=== PATIENT | female | born 1995 | race Caucasian/White ===

== ENCOUNTER 2018-04-15 10:36 | Day surgery (SDC) | payer OTHER ==
[~2018-04-15] VITALS: Ht 165.1 cm; Wt 105.6 kg
[2018-04-15] MEDS ORDERED: MIDAZOLAM 1 MG/ML, 2ML ONE (10:42)
[2018-04-15] MEDS ORDERED: FENTANYL PF 250 MCG/5ML ONE (10:42)
[2018-04-15] MEDS ORDERED: MISOPROSTOL 200 MCG TABLET ONE (10:44)
[2018-04-15] MEDS ORDERED: OXYTOCIN 10 UNITS/ML, 1ML ONE (10:44)
[2018-04-15] MEDS ORDERED: SILVER NITRATE STICK TP ONE (10:44)
[2018-04-15] MEDS ORDERED: METHYLERGONOVINE 0.2 MG/ML IM ONE (10:45)
[2018-04-15] MEDS ORDERED: PROPOFOL 10 MG/ML, 20ML ONE (10:46)
[2018-04-15] MEDS ORDERED: ONDANSETRON 2MG/ML, 2ML ONE (10:48)
[2018-04-15] MEDS ORDERED: CEFAZOLIN 1,000 MG ONE ×2 (10:48)
[2018-04-15] MEDS ORDERED: SODIUM CHLORIDE 0.9% PF 10ML ONE (10:48)
[2018-04-15] MEDS ORDERED: DEXAMETHASONE 4 MG/ML, 1ML ONE ×2 (10:48)
[2018-04-15] MEDS ORDERED: KETOROLAC 30 MG/1 ML ONE (10:48)
[2018-04-15] MEDS ORDERED: LACTATED RINGERS 1,000 ML IV SCH (11:08)
[2018-04-15 11:09] VITALS: BP 137/88
[2018-04-15] MEDS ORDERED: NONE PER PT (11:09)
[2018-04-15 11:21] LABS: BASOPHILS # (AUTO) 0.08 x10^3/uL (0-0.1); BASOPHILS % (AUTO) 1 % (0-1); EOSINOPHILS # (AUTO) 0.02 x10^3/uL (0-0.4); EOSINOPHILS % (AUTO) 0 % (1-7); LYMPHOCYTES # (AUTO) 1.92 x10^3/uL (1-3.4); LYMPHOCYTES % (AUTO) 24 % (22-44); MD NO; MEAN CORPUSCULAR HEMOGLOBIN 28.8 pg (27.0-34.8); MEAN CORPUSCULAR HGB CONC 33.6 g/dL (32.4-35.8); MEAN CORPUSCULAR VOLUME 85.8 fL (80-100); MEAN PLATELET VOLUME 8.2 fL (7.4-10.4); MONOCYTES # (AUTO) 0.48 x10^3/uL (0.2-0.8); MONOCYTES % (AUTO) 6 % (2-9); NEUTROPHILS # (AUTO) 5.47 x10^3/uL (1.8-6.8); NEUTROPHILS % (AUTO) 69 % (42-75); PLATELET COUNT 302 x10^3/uL (130-400); RED BLOOD COUNT 4.88 x10^6/uL (3.82-5.3); RED CELL DISTRIBUTION WIDTH 12.9 % (9.6-15.2)
[2018-04-15] MEDS ORDERED: PROMETHAZINE 25 MG/ML, 1ML IV PRN (12:00)
[2018-04-15] MEDS ORDERED: OXYcodone 5 MG/5 ML ORAL.SOL UDC PO PRN (12:00)
[2018-04-15] MEDS ORDERED: PROMETHAZINE 25 MG/ML, 1ML IM PRN ×2 (12:00)
[2018-04-15] MEDS ORDERED: MEPERIDINE/PF 25MG/0.5ML IVPush PRN (12:00)
[2018-04-15] MEDS ORDERED: ONDANSETRON 2MG/ML, 2ML IV PRN (12:00)
[2018-04-15] MEDS ORDERED: PROMETHAZINE 12.5 MG SUPP PR PRN (12:00)
[2018-04-15] MEDS ORDERED: PROMETHAZINE 25 MG SUPP PR PRN (12:00)
[2018-04-15] MEDS ORDERED: FENTANYL PF 100 MCG/2ML IV PRN (12:00)
[2018-04-15] MEDS ORDERED: MORPHINE SULFATE 4 MG/ML, 1ML IVPush PRN (12:00)
[2018-04-15] MEDS ORDERED: ACETAMINOPHEN 325 MG TABLET PO PRN (12:00)
[2018-04-15] MEDS ORDERED: ONDANSETRON ODT 8 MG PO PRN (12:00)
[2018-04-15] MEDS ORDERED: HYDROmorphone 2 MG/ML, 1ML IVPush PRN (12:00)
[2018-04-15 13:57] VITALS: BP 152/94
== END 2018-04-15 15:30 | disposition home or self-care (01) ==
LOC: OUT 10:36
PROVIDERS: ATTEND Obstetrics & Gynecology
DX: O02.1 Missed abortion (principal); G43.909 Migraine, unspecified, not intractable, without status migrainosus; E66.01 Morbid (severe) obesity due to excess calories; Z68.38 Body mass index [BMI] 38.0-38.9, adult; Z3A.01 Less than 8 weeks gestation of pregnancy
CPT/HCPCS: 36415; 59820; 85025; 86850; 86870; 86900; 86922; 88305; J0690; J1100; J1885; J2210; J2250; J2405; J2704; J2790; J3010; J7120; 86923; J2590